=== PATIENT | female | born 1980 | race Caucasian/White ===

== ENCOUNTER 2019-03-03 19:44 | Emergency (ER) | payer MEDICAID ==
[~2019-03-03] VITALS: Ht 170.2 cm; Wt 54.5 kg
[2019-03-03 19:50] VITALS: Ht 170.2 cm; Wt 54.5 kg
[2019-03-03] MEDS ORDERED: LEVEMIR IN100 UNITS/ SC (19:52)
[2019-03-03] MEDS ORDERED: NOVOLIN 70/30 110 ML SC (19:53)
[2019-03-03] MEDS ORDERED: PRINIVIL10 MG PO (19:54)
[2019-03-03] MEDS ORDERED: BUPROPION XL300 MG PO (19:54)
[2019-03-03] MEDS ORDERED: FUROSEMIDE20 MG PO (20:15)
[2019-03-03 21:00] VITALS: BP 127/83
--- NOTE | 2019-03-04 03:28 | NUR ---
DR HUMPHRIES NOTIFIED AND REVIEWED PT's BEHAVIOR AND ASSESSMENT RESULTS. PT IS A LOW RISK PER DR HUMPHRIES. DR HUMPHRIES STATED TO GIVE RESOURCES TO PT AT TIME OF DISCHARGE. NO FURTHER ORDERS AT THIS TIME. RESOURCES REVIEWED WITH PT AND SHE VERBALIZED UNDERSTANDING.
== END 2019-03-03 21:01 | disposition home or self-care (01) ==
LOC: D.ER 19:44
DX: R60.9 Edema, unspecified (principal); E11.9 Type 2 diabetes mellitus without complications; Z79.4 Long term (current) use of insulin; I10 Essential (primary) hypertension; Z72.0 Tobacco use